=== PATIENT | female | born 1935 | race Caucasian/White ===

== ENCOUNTER 2020-10-25 03:08 | Emergency (ER) | payer MEDICARE, OTHER ==
[2020-10-25] MEDS ORDERED: Nitrofurantoin Monohydrate/Macrocrystalline 100 MG Cap PO STA (04:47)
--- NOTE | 2020-10-25 04:52 | EDM.PDOC ---
ED HPI GENERAL MEDICAL PROBLEM - General Chief Complaint: Genitourinary Problem Stated Complaint: POSS UTI Time Seen by Provider: 10/25/20 03:45 Source of Information: Reports: Patient, Family (Son) History Limitations: Reports: No Limitations - History of Present Illness INITIAL COMMENTS - FREE TEXT/NARRATIVE: Mrs. Kirby is a very pleasant 84-year-old woman who now presents the ED concerned that she may have a urinary tract infection. She states that she was diagnosed with a UTI on 10/16/2020 while in [place]. She was prescribed Keflex for 7 days, which she took as prescribed, and finished 3 days ago. She states that she felt better, but tonight developed some bladder discomfort and gross hematuria. She denies dysuria, per se, but acknowledges urinary frequency. No recent fever. Here in the ED, the patient's initial BP is found to be modestly elevated at 156/82, otherwise, she is hemodynamically stable, afebrile, saturating 97% on room air. She appears to be comfortable, no acute distress. Other than her recent UTI, the patient denies having a recent fever, chills, sore throat, ear pain, nasal or sinus congestion, cough, dyspnea, chest pain, palpitations, nausea, vomiting, constipation, diarrhea, abdominal pain, recent weight gain or weight loss, recent bloody bowel movements or black bowel movements, recent joint aches, headaches, or rashes. The patient is visiting from [facility]. She has received 2 COVID vaccinations. Groin Pain Score (Numeric/FACES): 8 - Related Data Allergies Allergy/AdvReac Type Severity Reaction Status Date / Time sulfamethoxazole Allergy Cannot Verified 10/25/20 03:20 [From Bactrim] Remember trimethoprim [From Bactrim] Allergy Cannot Verified 10/25/20 03:20 Remember Home Meds: Home Meds Cholecalciferol (Vitamin D3) [Vitamin D3] 1 tab PO DAILY 10/25/20 [History] Cimetidine 1 tab PO DAILY 10/25/20 [History] Levothyroxine [Synthroid] 1 tab PO DAILY 10/25/20 [History] Potassium Chloride [Klor-Con 10] 1 tab PO DAILY 10/25/20 [History] hydroCHLOROthiazide [Hydrochlorothiazide] 1 tab PO DAILY 10/25/20 [History] Past Medical History Cardiovascular History: Reports: Hypertension Gastrointestinal History: Reports: GERD Genitourinary History: Reports: Urinary Incontinence (stress incontinence) Endocrine/Metabolic History: Reports: Hypothyroidism - Infectious Disease History Infectious Disease History: Reports: Chicken Pox, Measles, Mumps, Shingles Social & Family History - Tobacco Use Tobacco Use Status *Q: Never Tobacco User Second Hand Smoke Exposure: No - Caffeine Use Caffeine Use: Reports: None - Alcohol Use Alcohol Use History: Yes Alcohol Use Frequency: Rarely - Recreational Drug Use Recreational Drug Use: No - Living Situation & Occupation Living situation: Reports: , with Spouse Occupation: Retired ED ROS GENERAL - Review of Systems Review Of Systems: Comprehensive ROS is negative, except as noted in HPI. ED EXAM, RENAL/ - Physical Exam Exam: See Below Exam Limited By: No Limitations General Appearance: Alert, WD/WN, No Apparent Distress Eye Exam: Bilateral Eye: EOMI, Normal Inspection Ears: Normal External Exam, Hearing Grossly Normal Nose: Normal Inspection Throat/Mouth: Normal Inspection, Normal Lips, Normal Voice, No Airway Compromise Head: Atraumatic, Normocephalic Neck: Normal Inspection, Full Range of Motion Respiratory/Chest: No Respiratory Distress, Lungs Clear, Normal Breath Sounds, No Accessory Muscle Use Cardiovascular: Normal Peripheral Pulses, Regular Rate, Rhythm, No Edema, No Gallop, No JVD, No Murmur, No Rub GI/Abdominal: Normal Bowel Sounds, Soft, No Organomegaly, No Distention, No Abnormal Bruit, No Mass, Tender (Mild suprapubically only. Nontender elsewhere.) Back Exam: Normal Inspection, Full Range of Motion, NT Extremities: Normal Inspection, Normal Range of Motion, No Pedal Edema, Normal Capillary Refill Neurological: Alert, Oriented, Normal Cognition, No Motor/Sensory Deficits Psychiatric: Normal Affect Skin Exam: Warm, Dry, Intact, Normal Color, No Rash Course - Vital Signs Last Recorded V/S: Last Vital Signs Temp 36.3 C 10/25/20 03:17 Pulse 72 10/25/20 03:17 Resp 16 10/25/20 03:17 BP 156/82 H 10/25/20 03:17 Pulse Ox 97 10/25/20 03:17 - Orders/Labs/Meds Labs: Laboratory Tests 10/25/20 Range/Units 03:35 Urine Color Red H (Yellow) Urine Appearance Cloudy H (Clear) Urine pH 7.0 (5.0-8.0) Ur Specific [place] 1.015 (1.005-1.030) Urine Protein 3+ H (Negative) Urine Glucose (UA) Negative (Negative) Urine Ketones Trace H (Negative) Urine Occult Blood 3+ H (Negative) Urine Nitrite Positive H (Negative) Urine Bilirubin 2+ H (Negative) Urine Urobilinogen 0.2 (0.2-1.0) Ur Leukocyte Esterase 3+ H (Negative) Urine RBC >100 H (0-5) /hpf Urine WBC >100 H (0-5) /hpf Ur Squamous Epith Cells 0-5 (0-5) /hpf Ur Renal Epithelial Cell 0-5 (0-5) /hpf Urine Bacteria Rare (FEW) /hpf Urine Mucus Not seen (FEW) /hpf Meds: Medications Discontinued Medications Generic Name Dose Route Start Last Admin Trade Name Freq PRN Reason Stop Dose Admin Nitrofurantoin Macrocrystals 100 mg 10/25/20 04:47 10/25/20 05:18 Nitrofurantoin Monohydrate/Macrocrystalline 100 Mg Cap PO 10/25/20 04:48 100 mg ONETIME STA Administration - Re-Assessments/Exams Free Text/Narrative Re-Assessment/Exam: 10/25/20 05:04 The patient's urinalysis is remarkable for red/cloudy appearance, 3+ occult blood with >100 RBCs, 3+ leukocyte esterase with >100 WBCs, nitrite positive with rare bacteria, and 0-5 squamous epithelial cells. A urine culture was ordered at triage. Based on the above, it is clear that the patient has a UTI. She has been started on nitrofurantoin, and I will submit an [facility] prescription for her to complete a 5-day course. She should stay adequately hydrated, and she may take a total of 6 doses of OTC Azo for bladder discomfort. Departure - Departure Time of Disposition: 05:07 Disposition: Home, Self-Care 01 Condition: Good Clinical Impression: UTI (urinary tract infection) - Discharge Information *PRESCRIPTION DRUG MONITORING PROGRAM REVIEWED*: Not Applicable *COPY OF PRESCRIPTION DRUG MONITORING REPORT IN PATIENT HAKAN: Not Applicable Instructions: Urinary Tract Infection, Adult, [id number] Referrals: PCP,Not In Area [Primary Care Provider] - Forms: ED Department Discharge Additional Instructions: You were seen in the emergency room bladder discomfort and visible blood in your urine, in the setting of being treated for urinary tract infection on 10/16/2020. Work-up in the ER included a urinalysis, which confirmed that you have a urinary tract infection. A sample of your urine has been sent for culture. You have been started on the antibiotic nitrofurantoin, and an [facility] prescription for nitrofurantoin has been provided to you. Take 1 tablet of nitrofurantoin every 12 hours, starting this evening, 10/25/2020, as prescribed. If you like, you may also take [id number] Azo to help with your symptoms, however, we recommend that you take no more than 6 doses of Azo. Azo will turn your urine orange, which is normal. The adequately hydrated. It does not really matter what type of fluid you drink. If any other problems, please do not hesitate to return to the ER. Sepsis Event Note (ED) - Evaluation Sepsis Screening Result: No Definite Risk
== END 2020-10-25 05:30 | disposition home or self-care (01) ==
LOC: JD.ED 03:08
DX: N39.0 Urinary tract infection, site not specified (principal); I10 Essential (primary) hypertension; E03.9 Hypothyroidism, unspecified; Z88.2 Allergy status to sulfonamides; Z79.899 Other long term (current) drug therapy
CPT/HCPCS: 81001; 87086; 87088; 87184; 87186; 99283; A9270